=== PATIENT | female | born 1980 | race Caucasian/White ===

== ENCOUNTER 2019-08-12 07:41 | Day surgery (SDC) | payer BC, OTHER ==
[2019-08-12 08:40] LABS: INTERNATIONAL RATION (INR) 0.96; PROTHROMBIN TIME 12.8 SEC (11.4-15.4)
[2019-08-12 08:41] LABS: PARTIAL THROMBOPLASTIN TIME 25.2 SEC (23.5-35.8)
--- NOTE | 2019-08-12 11:00 | RADIOLOGY REPORT (SQ) ---
EXAM DESCRIPTION: LUMBAR PUNCTURE IMAGES COMPLETED DATE/TIME: 08/12/2019 9:53 am REASON FOR STUDY: MS COMPARISON: None. FLUOROSCOPY TIME: 0.3 minutes. 1 images saved to PACS. TECHNIQUE: Fluoroscopic guided lumbar puncture with opening and closing pressures. LIMITATIONS: None. PROCEDURE: After written consent and assessment were obtained, the patient was brought into the fluo roscopy room and placed prone on the table. The patient's lower back was prepped in a sterile fashion and an entry site was selected under live fluoroscopic guidance. The entry site was anesthetized wit h 1% lidocaine. A 15 cm 20 gauge needle was advanced through the skin and into the thecal sac at the level of L 3 -L 4 . An opening pressure of 19 units was obtained. After approximately 9 ml of CSF was drained, a closing pressure of 15 units was obtained. The needle was removed and a sterile bandage w as placed of the site. Specimens were sent to the lab for testing. A fluoroscopic spot image was save d to PACS confirming level access. FINDINGS: Clear CSF IMPRESSION: Lumbar puncture under fluoroscopy. No immediate complication. COMMENT: Patient medication list reviewed: Yes- Quality ID# [id number]:Eligible professional attests to doc umenting in the medical record they obtained, updated, or reviewed the patient's current medications. Quality ID 145: Final reports for procedures using fluoroscopy that document radiation exposure indic es, or exposure time and number of fluorographic images (if radiation exposure indices are not availa ble) TECHNICAL DOCUMENTATION: Job ID: [id number] 2010 [employer]- All Rights Reserved Reading location - IP/workstation name: [email or web address] [id number]
[2019-08-12 11:11] LABS: APPEARANCE ALL TUBES CLEAR; COLOR ALL TUBES COLORLESS; CSF TUBE NUMBER 3
[2019-08-12 11:16] LABS: GLUCOSE,CSF 58 mg/dL (40-70); PROTEIN,CSF 46 mg/dL (12-60)
[2019-08-12 11:29] LABS: RED BLOOD CELL,CSF 2 /uL (0-10)
[2019-08-12 11:30] LABS: WHITE BLOOD CELL,CSF 1 /uL (0-5)
[2019-08-12 11:56] VITALS: BP 132/96
== END 2019-08-12 11:55 | disposition home or self-care (01) ==
LOC: RAD 07:41
PROVIDERS: ATTEND Specialist
DX: G35 Multiple sclerosis (principal); Z88.0 Allergy status to penicillin; Z88.8 Allergy status to other drugs, medicaments and biological substances; Z79.899 Other long term (current) drug therapy; I10 Essential (primary) hypertension; D64.9 Anemia, unspecified
CPT/HCPCS: 36415; 62328; 82784; 82945; 83916; 84157; 85610; 85730; 87070; 87205; 89050